=== PATIENT | male | born 1965 | race Caucasian/White ===

== ENCOUNTER 2017-10-16 17:18 | Emergency (ER) | payer OTHER ==
[2017-10-16 17:40] VITALS: BP 146/86; PULSE 101; BMI 27.8
[2017-10-16] MEDS ORDERED: IBUPROFEN 400 MG TABLET (FP) PO ONE ×2 (18:36→18:41)
--- NOTE | 2017-10-16 18:58 | PDOC ---
History of Present Illness - General Chief Complaint: Cold Symptoms Stated Complaint: COLD SYMPTOMS Time Seen by Provider: 10/16/17 18:32 History Source: Patient Exam Limitations: No Limitations - History of Present Illness Initial Comments: 10/16/17 18:43 52 yr male with no PMHX c/o cough headache fever for 3 days sore throat no vomiting no diarrhea. pt did not take any meds at home. Past History - Past Medical History Allergies/Adverse Reactions: Allergies Allergy/AdvReac Type Severity Reaction Status Date / Time No Known Allergies Allergy Verified 10/16/17 17:40 Home Medications: Ambulatory Orders NK [No Known Home Medication] 10/16/17 COPD: No Thyroid Disease: No - Suicide/Smoking/Psychosocial Hx Smoking History: Never smoked Have you smoked in the past 12 months: No Information on smoking cessation initiated: No Hx Alcohol Use: No Drug/Substance Use Hx: No Substance Use Type: None Respiratory Specific PMHX - Complaint Specific PMHX Angina: No Bronchitis: No Pneumonia: No Pulmonary Embolus: No TB (Tuberculosis): No Review of Systems - Review of Systems Able to Perform ROS?: Yes Is the patient limited Sami proficient: No Constitutional: Yes: Symptoms Reported, Fever HEENTM: Yes: Symptoms Reported, Throat Pain Respiratory: Yes: Cough *Physical Exam - Vital Signs Last Vital Signs Temp Pulse Resp BP Pulse Ox 102 F H 101 H 18 146/86 100 10/16/17 17:36 10/16/17 17:36 10/16/17 17:36 10/16/17 17:36 10/16/17 17:36 - Physical Exam General Appearance: Yes: Nourished, Appropriately Dressed HEENT: positive: EOMI, NICOLÁS, TMs Normal, Pharyngeal Erythema. negative: Muffled /Hoarse voice, Tonsillar Exudate, Tonsillar Erythema Neck: positive: Supple Respiratory/Chest: positive: Lungs Clear, Normal Breath Sounds Cardiovascular: positive: Regular Rhythm, Regular Rate Gastrointestinal/Abdominal: positive: Normal Bowel Sounds, Soft Musculoskeletal: positive: Normal Inspection Extremity: positive: Normal Capillary Refill, Normal Inspection, Normal Range of Motion Integumentary: positive: Normal Color, Dry, Warm Neurologic: positive: Fully Oriented, Alert, Normal Mood/Affect, Normal Response , Motor Strength 5/5 ED Treatment Course - Medications Given in the ED: ED Medications Discontinued Medications Generic Name Dose Route Start Last Admin Trade Name Freq PRN Reason Stop Dose Admin Ibuprofen 800 mg 10/16/17 18:36 10/16/17 18:42 Motrin - PO 10/16/17 18:37 800 mg ONCE ONE Administration Medical Decision Making - Medical Decision Making 10/16/17 18:59 cc: fever cough sore throat will check strep and flu motrin now no acute distress lungs CTA *DC/Admit/Observation/Transfer Diagnosis at time of Disposition: Influenza A - Discharge Dispostion Disposition: HOME Condition at time of disposition: Good - Referrals Referrals: Uday Worley MD [Primary Care Provider] - - Patient Instructions Printed Discharge Instructions: Influenza Additional Instructions: you have the FLUyou must rest at home and avoid crowds, stores public places you need to drink at least 2 liters of water a day take over the counter (ibuprofen, motrin or advil 800mg every 8hrs ) for fever and take tylenol 650mg every 4hrs for fever and pain follow wtih your doctor in one week if not improving return to ER if worse - Post Discharge Activity
[2017-10-16 19:30] VITALS: TEMP 99.7
== END 2017-10-16 19:56 | disposition home or self-care (01) ==
LOC: JERFT 17:18
DX: J09.X2 Influenza due to identified novel influenza A virus with other respiratory manifestations (principal)
CPT/HCPCS: 87070; 87430; 87804; 99281-25